=== PATIENT | female | born 1995 | race Caucasian/White ===

== ENCOUNTER 2018-08-12 12:43 | Emergency (ER) | payer SELFPAY ==
[~2018-08-12] VITALS: Ht 172.7 cm; Wt 112.2 kg
[2018-08-12] MEDS ORDERED: NORCO 325 MG-51 TAB PO ×2 (12:51→13:16)
[2018-08-12] MEDS ORDERED: PERIDEX (CHLOR480 ML MM (13:16)
[2018-08-12] MEDS ORDERED: CLEOCIN HCL300 MG PO (13:16)
[2018-08-12 13:30] VITALS: BP 123/75; PULSE 88; TEMP 97.5
== END 2018-08-12 13:30 | disposition home or self-care (01) ==
LOC: COL.ER 12:43
DX: K02.9 Dental caries, unspecified (principal); F17.210 Nicotine dependence, cigarettes, uncomplicated

== ENCOUNTER 2019-02-12 08:58 | Emergency (ER) | payer SELFPAY ==
[~2019-02-12] VITALS: Ht 172.7 cm; Wt 118.2 kg
[~2019-02-12 08:58] MED LIST: CLEOCIN HCL300 MG PO; NORCO 325 MG-51 TAB PO; PERIDEX (CHLOR480 ML MM
[2019-02-12 09:12] VITALS: BP 140/85; TEMP 98.9
[2019-02-12 10:17] VITALS: PULSE 16
== END 2019-02-12 10:17 | disposition home or self-care (01) ==
LOC: COL.ER 08:58
DX: J11.1 Influenza due to unidentified influenza virus with other respiratory manifestations (principal); F17.210 Nicotine dependence, cigarettes, uncomplicated

== ENCOUNTER 2019-02-15 12:32 | Emergency (ER) | payer SELFPAY ==
[~2019-02-15] VITALS: Ht 172.7 cm; Wt 118.2 kg
[2019-02-15 13:06] VITALS: BP 135/68; PULSE 97; TEMP 98.7
== END 2019-02-15 15:15 | disposition home or self-care (01) ==
LOC: COL.ER 12:32
DX: J06.9 Acute upper respiratory infection, unspecified (principal); F17.210 Nicotine dependence, cigarettes, uncomplicated